=== PATIENT | female | born 1950 | race Caucasian/White ===

== ENCOUNTER 2017-02-03 08:00 | Inpatient (IN) | payer MEDICARE, OTHER ==
[~2017-02-03 08:00] MED LIST: Lidocaine 1%/Sod Bicarbonate in NS 8.4% 1 ML Syringe PRN; Sodium Chloride 0.9% 10 ML Syringe FLUSH PRN
[2017-02-03] MEDS: Lactated Ringers 1,000 ML IV SCH ×2 (11:10→15:04)
[2017-02-03] MEDS ORDERED: Scopolamine 1.5 MG Transdermal Patch TRDERM ONE (11:11)
--- NOTE | 2017-02-03 11:14 | PCM.PREANE ---
Preanesthetic Assessment - Anesthesia/Transfusion/Family Hx Anesthesia History: Prior Anesthesia Reaction Type of Anesthesia Reaction: Excessive Nausea/Vomiting Family History of Anesthesia Reaction: Yes Transfusion History: No Prior Transfusion(s) - Review of Systems General: No Symptoms Pulmonary: No Symptoms Cardiovascular: No Symptoms Gastrointestinal: No Symptoms Neurological: No Symptoms Other: Reports: None - Physical Assessment NPO Status Date: 02/02/17 NPO Status Time: 21:00 Pulse: 65 O2 Sat by Pulse Oximetry: 98 Respiratory Rate: 16 Blood Pressure: 132/79 Temperature: 37.2 C Weight: 91 kg ASA Class: 2 Mental Status: Alert & Oriented x3 Airway Class: Mallampati = 2 Dentition: Reports: Normal Dentition Thyro-Mental Finger Breadths: 3 Mouth Opening Finger Breadths: 3 ROM/Head Extension: Full Lungs: Clear to Auscultation, Normal Respiratory Effort Cardiovascular: Regular Rate, Regular Rhythm - Lab Values: Reviewed - Imaging/EKG Impressions: Reviewed - Allergies Allergies/Adverse Reactions: Allergies Allergy/AdvReac Type Severity Reaction Status Date / Time chlorhexidine Allergy Rash Verified 01/31/17 16:22 - Acknowledgements Anesthesia Type Planned: Spinal Pt an Appropriate Candidate for the Planned Anesthesia: Yes Alternatives and Risks of Anesthesia Discussed w Pt/Guardian: Yes Pt/Guardian Understands and Agrees with Anesthesia Plan: Yes PreAnesthesia Questionnaire HEENT History: Reports: Impaired Vision, Other (See Below) Other HEENT History: wears glasses Cardiovascular History: Reports: High Cholesterol Respiratory History: Reports: None Gastrointestinal History: Reports: Other (See Below) Other Gastrointestinal History: ulcerative colitis Genitourinary History: Reports: Urinary Incontinence [employer] History: Reports: None Musculoskeletal History: Reports: Osteoarthritis, Other (See Below) Other Musculoskeletal History: calcaneal spur Right foot, chronic lumbar radiculpathy, plantar fasciitis, acute low back pain Neurological History: Reports: None Psychiatric History: Reports: Other (See Below) Other Psychiatric History: insomnia Endocrine/Metabolic History: Reports: None Hematologic History: Reports: None Immunologic History: Reports: None Oncologic (Cancer) History: Reports: None Dermatologic History: Reports: None - Past Surgical History Head Surgeries/Procedures: Reports: None Cardiovascular Surgical History: Reports: None Respiratory Surgical History: Reports: None GI Surgical History: Reports: Bariatric Procedure, Colonoscopy Female Surgical History: Reports: Section, Oophorectomy Male Surgical History: Reports: None Endocrine Surgical History: Reports: None Neurological Surgical History: Reports: None Musculoskeletal Surgical History: Reports: Other (See Below) Other Musculoskeletal Surgeries/Procedures:: bilateral knee replacements, bilateral carpal tunnel release Oncologic Surgical History: Reports: None Dermatological Surgical History: Reports: None - SUBSTANCE USE Smoking Status *Q: Former Smoker Recreational Drug Use History: No - HOME MEDS Home Medications: Home Meds Acetaminophen [Tylenol Extra Strength] 1,000 mg PO Q6H PRN 01/31/17 [History] Balsalazide Disodium 3 cap PO TID 01/31/17 [History] Cholecalciferol (Vitamin D3) [Vitamin D3] 1,000 unit PO DAILY 01/31/17 [History] Loratadine [Alavert] 10 mg PO DAILY PRN 01/31/17 [History] Zolpidem [Ambien] 5 - 10 mg PO BEDTIME PRN 01/31/17 [History] - CURRENT (IN HOUSE) MEDS Current Meds: Current Medications Bisacodyl (Dulcolax) 5 mg PO DAILY PRN PRN Reason: Constipation Morphine Sulfate 8 mg/Epinephrine HCl 0.3 mg/Cefuroxime Sodium 750 mg/Ketorolac Tromethamine 30 mg/Sodium Chloride 27.9 ml 0 mg .XX ONETIME ONE Stop: 02/03/17 11:31 Cyclobenzaprine HCl (Flexeril) 10 mg PO TID PRN PRN Reason: Spasms Diphenhydramine HCl (Benadryl) 25 mg IVPUSH Q4H PRN PRN Reason: Nausea Docusate Sodium (Colace) 100 mg PO BID MARISELA Famotidine (Pepcid) 20 mg PO BID MARISELA Lactated Ringer's (Ringers, Lactated) 1,000 mls @ 125 mls/hr IV ASDIRECTED MARISELA Stop: 02/03/17 23:00 Cefazolin Sodium/Dextrose 2 gm (/ Premix) 50 mls @ 100 mls/hr IV Q8H MARISELA Stop: 02/03/17 23:29 Lidocaine/Sodium Bicarbonate (Buffered Lidocaine 1% In Ns 8.4%) 0.25 ml .XX ONETIME PRN PRN Reason: Prior to IV Start Stop: 02/03/17 18:00 Magnesium Hydroxide (Milk Of Magnesia) 30 ml PO BID PRN PRN Reason: Constipation Morphine Sulfate (Morphine) 2 mg IVPUSH Q2H PRN PRN Reason: Breakthrough Pain Naloxone HCl (Narcan) 0.1 mg IVPUSH Q5M PRN PRN Reason: Oversedation Ondansetron HCl (Zofran) 4 mg IVPUSH Q6H PRN PRN Reason: Nausea/Vomiting Oxycodone/Acetaminophen (Percocet 325-5 Mg) 1 - 2 tab PO Q4H PRN PRN Reason: Pain Rivaroxaban (Xarelto) 10 mg PO DAILY MARISELA Scopolamine (Transderm-Scop) 1.5 mg TRDERM ONETIME ONE Stop: 02/03/17 11:12 Senna (Senna) 8.6 mg PO BID PRN PRN Reason: Constipation Sodium Chloride (Saline Flush) 10 ml FLUSH ASDIRECTED PRN PRN Reason: Keep Vein Open Stop: 02/03/17 18:00
[2017-02-03] MEDS ORDERED: Midazolam 1 MG/ML 2 ML SDV ONE (11:34)
[2017-02-03] MEDS ORDERED: Morphine PF 10 MG/10 ML SDV ONE (11:34)
[2017-02-03] MEDS ORDERED: Propofol 200 MG/20 ML SDV ONE ×3 (11:35→11:36)
[2017-02-03] MEDS ORDERED: fentaNYL 100 MCG/2 ML SDV ONE (11:35)
[2017-02-03] MEDS ORDERED: ceFAZolin 1 GM Vial ONE ×2 (11:36)
[2017-02-03] MEDS ORDERED: Ketamine 500 mg/10 ML MDV ONE (11:36)
[2017-02-03] MEDS ORDERED: Ondansetron 4 MG/2 ML SDV IVPUSH PRN ×2 (12:26→12:30)
[2017-02-03] MEDS ORDERED: fentaNYL 100 MCG/2 ML SDV IVPUSH PRN (12:26)
[2017-02-03] MEDS ORDERED: Lactated Ringers 1,000 ML ONE (12:30)
[2017-02-03] MEDS ORDERED: Bisacodyl 5 MG Tab PO PRN (12:30)
[2017-02-03] MEDS ORDERED: Sennosides 8.6 MG Tab PO PRN (12:30)
[2017-02-03] MEDS ORDERED: Magnesium Hydroxide 400 MG/5 ML Susp 30 ML Cup PO PRN (12:30)
[2017-02-03] MEDS ORDERED: Cyclobenzaprine 10 MG Tab PO PRN (12:30)
[2017-02-03] MEDS ORDERED: Naloxone 0.4 MG/ML SDV IVPUSH PRN (12:30)
[2017-02-03] MEDS ORDERED: Morphine 2 MG/ML Syringe IVPUSH PRN (12:30)
[2017-02-03] MEDS ORDERED: diphenhydrAMINE 50 MG/ML SDV IVPUSH PRN ×2 (12:30→13:31)
[2017-02-03] MEDS: Iodine/Sodium Iodide 2% Tincture 30 ML Bottle ONE ×2 (12:33→13:20)
[2017-02-03] MEDS: ceFAZolin 1 GM Vial ONE ×2 (12:34→13:23)
[2017-02-03] MEDS: Morphine 8 MG, EPINEPHrine 0.3 MG, Cefuroxime 750 MG, Ketorolac 30 MG, Sodium Chloride ... ONE ×10 (12:34→13:27)
[2017-02-03] MEDS: Bupivacaine 0.25% 30 ML SDV ONE ×2 (12:35→13:28)
[2017-02-03] MEDS: Vancomycin 1 GM SDV ONE ×2 (12:37→13:34)
[2017-02-03] MEDS ORDERED: ePHEDrine 50 MG/ML SDV ONE (13:01)
[2017-02-03] MEDS ORDERED: ePHEDrine 50 MG/ML SDV IVPUSH PRN (13:31)
[2017-02-03] MEDS ORDERED: Diphtheria,Pertussis(Acell),Tetanus Vaccine 0.5 ML SDV IM ONE (13:34)
[2017-02-03] MEDS ORDERED: Pneumococcal Polyvalent-23 Vaccine 0.5 ML SDV IM ONE (13:34)
[2017-02-03] MEDS ORDERED: FLU Vacc QS 2017-18 (6mos UP)/PF 60 MCG/0.5 ML Syringe IM ONE (13:45)
[2017-02-03] MEDS ORDERED: Ondansetron 4 MG/2 ML SDV ONE (13:49)
[2017-02-03] MEDS ORDERED: Dexamethasone 4 MG/ML 5 ML MDV ONE (13:49)
--- NOTE | 2017-02-03 14:14 | PCM.POSTAN ---
POST ANESTHESIA ASSESSMENT - MENTAL STATUS Mental Status: Alert, Oriented - VITAL SIGNS Pulse Rate: 72 SaO2: 98 Resp Rate: 16 Blood Pressure: 82/49 Temperature: 36.1 C - RESPIRATORY Respiratory Status: Respiratory Rate WNL, Airway Patent, O2 Saturation Stable - CARDIOVASCULAR CV Status: Pulse Rate WNL, Blood Pressure Stable - GASTROINTESTINAL GI Status: No Symptoms - PAIN Pain Score: 0 - POST OP HYDRATION Hydration Status: Adequate & Stable
[2017-02-03] MEDS ORDERED: Ketorolac 30 MG/ML SDV ONE (14:32)
[2017-02-03] MEDS ORDERED: Haloperidol Lactate 5 MG/ML SDV IVPUSH ONE (14:40)
--- NOTE | 2017-02-03 14:45 | CR ---
Pelvis and left hip: AP view of the pelvis was obtained as well as lateral view of the left hip. Comparison: No previous study. Left hip prosthesis is seen. Components are aligned. Underlying bony structures are intact. Bony structures are osteopenic. Nothing acute is seen. Impression: 1. Satisfactory appearance of left hip prosthesis which has been recently placed. 2. Osteopenia. Diagnostic code #2
[2017-02-03] MEDS ORDERED: Metoclopramide 10 MG/2 ML SDV IVPUSH SCH (16:00)
--- NOTE | 2017-02-03 16:27 | PCM.SN ---
- Free Text/Narrative Note: Returned to patient's bedside. BP increased, RN to infuse remainder if IV fluids (500ml LR).
[2017-02-03] MEDS ORDERED: Loratadine 10 MG Tab PO PRN (17:11)
[2017-02-03] MEDS ORDERED: Zolpidem 5 MG Tab PO PRN (17:11)
--- NOTE | 2017-02-03 18:00 | PCM.OPNOTE ---
- General Post-Op/Procedure Note Date of Surgery/Procedure: 02/03/17 Operative Procedure(s): left total hip arthroplasty Pre Op Diagnosis: left hip osteoarthrosis Post-Op Diagnosis: Same Anesthesia Technique: Local, MAC, Spinal Primary Surgeon: Zac Russ Anesthesia Provider: Lena Hung Insurance Sales Executive: Maribel Torres Insurance Sales Executive: Chelsea Cabrera EBL in mLs: 400 Complications: None Condition: Good Free Text/Narrative:: Intake & Output 02/03/17 02/03/17 02/03/17 06:59 14:59 22:59 Intake Total 400 Output Total 350 Balance 50 56mm cup size 6 stem 36 +0
--- NOTE | 2017-02-03 18:43 | PCM.CONS ---
H&P History of Present Illness - General Date of Service: 02/03/17 Admit Problem/Dx: Admission Diagnosis/Problem Admission Diagnosis/Problem Osteoarthritis of hip Source of Information: Patient, Old Records, Provider, RN, RN Notes Reviewed, Other (surgical notes ) History Limitations: Reports: No Limitations - History of Present Illness Initial Comments - Free Text/Narative: Carla Dixon is a 66 [address] pt[address] of [address] Russ who is post-operative day 0 for left EDI. Hospital medicine was consulted for post-operative care. She is currently pain free however she is experiencing severe nausea with dry heaving. Her reports she has had both her knees done in the past and has had nausea and vomiting with these, although doesn't appear to have ever been this bad. She does have a emesis bag which contains minimal amounts of clear liquid. This appears to be saliva and not actual emesis. We will adjust her antiemetics accordingly. She denies any CP, SOB, or palpitations. She carries a history of HLD, ulcerative colitis, chronic lumbar radiculopathy, low back pain, prior bariatric procedure, and prior bilateral TKA. She is a full code. Her PCP is Dr. Emelina Mireles. Left Hip Pain Score (Numeric/FACES): 5 - Related Data Allergies/Adverse Reactions: Allergies Allergy/AdvReac Type Severity Reaction Status Date / Time chlorhexidine Allergy Rash Verified 01/31/17 16:22 Home Medications: Home Meds Acetaminophen [Tylenol Extra Strength] 1,000 mg PO Q6H PRN 01/31/17 [History] Balsalazide Disodium 3 cap PO TID 01/31/17 [History] Cholecalciferol (Vitamin D3) [Vitamin D3] 1,000 unit PO DAILY 01/31/17 [History] Loratadine [Alavert] 10 mg PO DAILY PRN 01/31/17 [History] Zolpidem [Ambien] 5 - 10 mg PO BEDTIME PRN 01/31/17 [History] Past Medical History HEENT History: Reports: Impaired Vision, Other (See Below) Other HEENT History: wears glasses Cardiovascular History: Reports: High Cholesterol, Other (See Below) Respiratory History: Reports: None Gastrointestinal History: Reports: Other (See Below) Other Gastrointestinal History: ulcerative colitis Genitourinary History: Reports: Urinary Incontinence CUT OFF TENDER GLASS History: Reports: None Musculoskeletal History: Reports: Osteoarthritis, Other (See Below) Other Musculoskeletal History: calcaneal spur Right foot, chronic lumbar radiculpathy, plantar fasciitis, acute low back pain Neurological History: Reports: None Psychiatric History: Reports: Other (See Below) Other Psychiatric History: insomnia Endocrine/Metabolic History: Reports: None Hematologic History: Reports: None Immunologic History: Reports: None Oncologic (Cancer) History: Reports: None Dermatologic History: Reports: None - Past Surgical History Head Surgeries/Procedures: Reports: None Cardiovascular Surgical History: Reports: None Respiratory Surgical History: Reports: None GI Surgical History: Reports: Bariatric Procedure, Colonoscopy Female Surgical History: Reports: Section, Oophorectomy Endocrine Surgical History: Reports: None Neurological Surgical History: Reports: None Musculoskeletal Surgical History: Reports: Other (See Below) Other Musculoskeletal Surgeries/Procedures:: bilateral knee replacements, bilateral carpal tunnel release Oncologic Surgical History: Reports: None Dermatological Surgical History: Reports: None Social & Family History - Family History Oncologic: Reports: Lung - Tobacco Use Smoking Status *Q: Former Smoker Used Tobacco, but Quit: No Month Tobacco Last Used: 1977 Second Hand Smoke Exposure: No - Caffeine Use Caffeine Use: Reports: Coffee Caffeine Use Comment: Drinks 1 cup per day - Recreational Drug Use Recreational Drug Use: No H&P Review of Systems - Review of Systems: Review Of Systems: See Below General: Reports: No Symptoms. Denies: Fever, Chills, Malaise, Weakness HEENT: Reports: No Symptoms. Denies: Ear Pain, Eye Pain, Headaches Pulmonary: Reports: No Symptoms. Denies: Shortness of Breath, Wheezing, Pleuritic Chest Pain, Cough, Sputum Cardiovascular: Reports: No Symptoms. Denies: Chest Pain, Palpitations, Dyspnea on Exertion, Orthopnea, PND, Edema, Lightheadedness, Syncope Gastrointestinal: Reports: Nausea, Vomiting. Denies: Abdominal Pain, Constipation, Diarrhea Genitourinary: Reports: No Symptoms. Denies: Dysuria, Frequency, Burning, Pain , Urgency Musculoskeletal: Reports: Other (reports legs are numb ). Denies: Neck Pain, Shoulder Pain, Arm Pain, Back Pain, Hand Pain, Leg Pain, Foot Pain, Joint Pain, Joint Swelling Psychiatric: Reports: No Symptoms. Denies: Confusion, Depression, Mood Lability , Anxiety Neurological: Reports: Dizziness, Numbness (bilateral legs ), Difficulty Walking. Denies: Confusion, Headache, Pre-Existing Deficit, Tingling, Trouble Speaking Hematologic/Lymphatic: Reports: No Symptoms Immunologic: Reports: No Symptoms Review of Systems Comment:: Patient reports having severe nausea and vomiting. She is known to have severe postoperative nausea and vomiting as she's had bilateral TKA with similar symptoms. She denies any other complaints. She's had a scopolamine patch and meclizine with no response. We'll review medications and adjust accordingly. Exam - Exam Exam: See Below - Vital Signs Vital Signs: Last Vital Signs Temp 97.2 F 02/03/17 15:00 Pulse 72 02/03/17 14:14 Resp 14 02/03/17 15:00 BP 103/62 02/03/17 15:00 Pulse Ox 89 L 02/03/17 15:26 Weight: 221 lb 14.4 oz - Exam Quality Assessment: Urinary Catheter, DVT Prophylaxis General: Alert, Oriented, Cooperative, Mild Distress HEENT: Conjunctiva Clear, EACs Clear, Hearing Intact, Mucosa Moist & [place], Nares Patent, Posterior Pharynx Clear, Pupils Equal, Pupils Reactive Neck: Supple, Trachea Midline. No: JVD Lungs: Clear to Auscultation, Normal Respiratory Effort Cardiovascular: Regular Rate, Regular Rhythm GI/Abdominal Exam: Normal Bowel Sounds, Soft, Non-Tender, No Organomegaly, No Distention, No Abnormal Bruit, No Mass (Female) Exam: Deferred Rectal (Female) Exam: Deferred Extremities: Non-Tender, No Pedal Edema, Normal Capillary Refill, Other (ALMA bandage on left leg. Bandage is intact and dry. ) Peripheral Pulses: 2+: Radial (L), Radial (R), Posterior Tibial (L), Posterior Tibial (R), Dorsalis Pedis (L), Dorsalis Pedis (R) Skin: Warm, Dry, Intact Neurological: Cranial Nerves Intact (grossly ) Neuro Extensive - Mental Status: Alert, Oriented x3, Normal Mood/Affect, Normal Cognition, Memory Intact Neuro Extensive - Motor, Sensory, Reflexes: CN II-XII Intact (grossly ) Psychiatric: Alert, Normal Affect, Normal Mood Physical Exam Comments:: Patient appears to be in some obvious distress from nausea. No other concerns noted. I did discuss this patient with Maribel Torres PA-C and will adjust some antiemetic medications. - Patient Data Lab Results Last 24 hrs: Laboratory Results - last 24 hr 02/03/17 Range/Units 11:00 Blood Type A POSITIVE Gel Antibody Screen Negative Consult PN Assessment/Plan POD#: 0 (1) S/P total hip arthroplasty SNOMED Code(s): 071177555847 Code(s): Z96.649 - PRESENCE OF UNSPECIFIED ARTIFICIAL HIP JOINT Current Visit: Yes Qualifiers: Laterality: left Qualified Code(s): Z96.642 - Presence of left artificial hip joint (2) Post-operative nausea and vomiting SNOMED Code(s): 1217332 Code(s): R11.2 - NAUSEA WITH VOMITING, UNSPECIFIED; Z98.890 - OTHER SPECIFIED POSTPROCEDURAL STATES Priority: High Current Visit: Yes (3) Hyperlipemia SNOMED Code(s): 73044529 Code(s): E78.5 - HYPERLIPIDEMIA, UNSPECIFIED Priority: Low Current Visit : No Qualifiers: Hyperlipidemia type: unspecified Qualified Code(s): E78.5 - Hyperlipidemia , unspecified (4) Ulcerative colitis SNOMED Code(s): 46097134 Code(s): K51.90 - ULCERATIVE COLITIS, UNSPECIFIED, WITHOUT COMPLICATIONS Priority: Low Current Visit: Yes Qualifiers: Ulcerative colitis location: unspecified ulcerative colitis location Digestive disease complication type: unspecified complication Qualified Code(s ): K51.919 - Ulcerative colitis, unspecified with unspecified complications (5) Lumbar radiculopathy SNOMED Code(s): 150879333 Code(s): M54.16 - RADICULOPATHY, LUMBAR REGION Priority: Low Current Visit: Yes (6) Hx of bariatric surgery SNOMED Code(s): 885702758 Code(s): Z98.84 - BARIATRIC SURGERY STATUS Priority: Low Current Visit: Yes Problem List Initiated/Reviewed/Updated: Yes Plan: I/P: Acute: S/P left EDI, Post-operative day 0 -DVT and pain management per primary team -PT/OT -IS/RT -Monitor O2 saturation -O2 as needed Post-operative N&V -Scopolamine patch in place with little effect. -Prior Reglan with little effect. -Prior Zofran with little effect. -Schedule zofran as indicated -Compazine now and PRN -Benadryl now and as indicated -D/C Reglan - monitor for extrapyramidal reaction due to Reglan and Compazine. Chronic: HLD UC Chronic lumbar uropathy Hx/o retro-surgery Hx/o bilateral TKA Plan: CM/SW for discharge planning Continue home medications as indicated Routine AM labs GI prophylaxis Requesting Provider: Dr. Russ Date Consult Requested: 02/03/17 Patient History Reviewed: Yes Admission H&P Reviewed: Yes Time Spent (in minutes): 60
[2017-02-03] MEDS ORDERED: Prochlorperazine 10 MG/2 ML SDV IVPUSH PRN (19:04)
[2017-02-03] MEDS: ceFAZolin 2 GM in Premix Bag 1 BAG IV SCH (19:53)
[2017-02-03] MEDS ORDERED: BALSALAZIDE DISODIUM PO SCH (21:00)
[2017-02-03] MEDS: Docusate Sodium 100 MG Cap PO SCH (21:50)
[2017-02-03] MEDS: Famotidine 20 MG Tab PO SCH (21:50)
[2017-02-04] MEDS: ceFAZolin 2 GM in Premix Bag 1 BAG IV SCH ×2 (04:16→10:52)
--- NOTE | 2017-02-04 06:21 | PCM.CONSN ---
- General Info Date of Service: 02/04/17 Admission Dx/Problem (Free Text): Admission Diagnosis/Problem Admission Diagnosis/Problem Osteoarthritis of hip Functional Status: Reports: Pain Controlled (10/28), Tolerating Diet, Ambulating , Urinating, Incentive Spirometry. Denies: New Symptoms - Review of Systems General: Reports: No Symptoms HEENT: Reports: No Symptoms Pulmonary: Reports: No Symptoms Cardiovascular: Reports: No Symptoms Gastrointestinal: Reports: Nausea (eariler this am, has resolved now. ). Denies : Abdominal Pain, Constipation, Diarrhea, Vomiting Genitourinary: Reports: No Symptoms Musculoskeletal: Reports: Leg Pain (left ), Joint Pain (left hip 10/28) Skin: Reports: No Symptoms Neurological: Reports: No Symptoms Psychiatric: Reports: No Symptoms Systems Review Comment:: Overall she is doing fairly well. She reports pain is controlled. Last night she did have nausea and vomiting which resolved. This was followed by dizziness which resolved this morning. She does have a history of postoperative nausea and vomiting. She has urinated. She reports 10/28 pain that is now controlled. - Patient Data Vitals - Most Recent: Last Vital Signs Temp 97.0 F 02/04/17 03:47 Pulse 75 02/04/17 03:47 Resp 16 02/04/17 03:47 BP 104/53 L 02/04/17 03:47 Pulse Ox 95 02/04/17 03:47 Weight - Most Recent: 217 lb 14.4 oz I&O - Last 24 Hours: Intake & Output 02/03/17 02/03/17 02/04/17 14:59 22:59 06:59 Intake Total 400 850 Output Total 350 250 Balance 50 600 Lab Results Last 24 Hours: Laboratory Results - last 24 hr 02/03/17 Range/Units 11:00 Blood Type A POSITIVE Gel Antibody Screen Negative Med Orders - Current: Current Medications Bisacodyl (Dulcolax) 5 mg PO DAILY PRN PRN Reason: Constipation Cholecalciferol (Vitamin D3) 1,000 units PO DAILY [facility] Cyclobenzaprine HCl (Flexeril) 10 mg PO TID PRN PRN Reason: Spasms Diphenhydramine HCl (Benadryl) 25 mg IVPUSH Q4H PRN PRN Reason: Nausea Last Admin: 02/03/17 19:08 Dose: 25 mg Docusate Sodium (Colace) 100 mg PO BID [facility] Last Admin: 02/03/17 21:50 Dose: 100 mg Famotidine (Pepcid) 20 mg PO BID [facility] Last Admin: 02/03/17 21:50 Dose: 20 mg Cefazolin Sodium/Dextrose 2 gm (/ Premix) 50 mls @ 100 mls/hr IV Q8H [facility] Stop: 02/04/17 11:59 Last Admin: 02/04/17 04:16 Dose: 100 mls/hr Loratadine (Claritin) 10 mg PO DAILY PRN PRN Reason: Allergies Magnesium Hydroxide (Milk Of Magnesia) 30 ml PO BID PRN PRN Reason: Constipation Morphine Sulfate (Morphine) 2 mg IVPUSH Q2H PRN PRN Reason: Breakthrough Pain Naloxone HCl (Narcan) 0.1 mg IVPUSH Q5M PRN PRN Reason: Oversedation Ondansetron HCl (Zofran) 4 mg IVPUSH Q6HR [facility] Oxycodone/Acetaminophen (Percocet 325-5 Mg) 1 - 2 tab PO Q4H PRN PRN Reason: Pain Prochlorperazine Edisylate (Compazine) 5 mg IVPUSH Q6H PRN PRN Reason: Nausea/Vomiting Last Admin: 02/03/17 19:52 Dose: 5 mg Rivaroxaban (Xarelto) 10 mg PO DAILY [facility] Senna (Senna) 8.6 mg PO BID PRN PRN Reason: Constipation Zolpidem Tartrate (Ambien) 5 - 10 mg PO BEDTIME PRN PRN Reason: Insomnia Discontinued Medications Bupivacaine HCl (Marcaine 0.25%) Confirm Administered Dose 30 ml .ROUTE .STK- MED ONE Stop: 02/03/17 11:25 Last Admin: 02/03/17 13:28 Dose: 30 ml Cefazolin Sodium (Ancef) Confirm Administered Dose 1 gm .ROUTE .STK-MED ONE Stop: 02/03/17 11:37 Cefazolin Sodium (Ancef) Confirm Administered Dose 1 gm .ROUTE .STK-MED ONE Stop: 02/03/17 11:37 Cefazolin Sodium (Ancef) Confirm Administered Dose 2 gm .ROUTE .STK-MED ONE Stop: 02/03/17 11:24 Last Admin: 02/03/17 13:23 Dose: 2 gm Morphine Sulfate 8 mg/Epinephrine HCl 0.3 mg/Cefuroxime Sodium 750 mg/Ketorolac Tromethamine 30 mg/Sodium Chloride 27.9 ml 0 mg .XX ONETIME ONE Stop: 02/03/17 11:31 Last Admin: 02/03/17 13:27 Dose: 788.3 mg Dexamethasone (Dexamethasone) Confirm Administered Dose 20 mg .ROUTE .STK-MED ONE Stop: 02/03/17 13:50 Diphenhydramine HCl (Benadryl) 25 mg IVPUSH Q6H PRN PRN Reason: Pruritis Stop: 02/03/17 23:00 Diphtheria/Tetanus/Acell Pertussis (Adacel) 0.5 ml IM .ONCE ONE Stop: 02/03/17 13:35 Ephedrine Sulfate (Ephedrine Sulfate) Confirm Administered Dose 50 mg .ROUTE .STK-MED ONE Stop: 02/03/17 13:02 Ephedrine Sulfate (Ephedrine Sulfate) 5 mg IVPUSH ASDIRECTED PRN PRN Reason: Hypotension Stop: 02/03/17 23:00 Fentanyl (Sublimaze) Confirm Administered Dose 100 mcg .ROUTE .STK-MED ONE Stop: 02/03/17 11:36 Fentanyl (Sublimaze) 50 mcg IVPUSH Q5M PRN PRN Reason: Pain Stop: 02/03/17 18:00 Haloperidol Lactate (Haldol) 1 mg IVPUSH ONETIME ONE Stop: 02/03/17 14:41 Lactated Ringer's (Ringers, Lactated) 1,000 mls @ 125 mls/hr IV ASDIRECTED [facility] Stop: 02/03/17 23:00 Last Admin: 02/03/17 15:04 Dose: 125 mls/hr Lactated Ringer's (Ringers, Lactated) Confirm Administered Dose 1,000 mls @ as directed .ROUTE .STK-MED ONE Stop: 02/03/17 12:31 Influenza Virus Vaccine (Pharmacy To Dose - Influenza Vaccine) 1 each IM ONETIME ONE Stop: 02/03/17 13:35 Influenza Virus Vaccine (Flulaval Quad [id number]) 60 mcg IM .ONCE ONE Stop: 02/03/17 13:46 Iodine (Iodine 2% Mild Tincture) Confirm Administered Dose 30 ml .ROUTE .STK- MED ONE Stop: 02/03/17 11:24 Last Admin: 02/03/17 13:20 Dose: 18 ml Ketamine HCl (Ketalar) Confirm Administered Dose 500 mg .ROUTE .STK-MED ONE Stop: 02/03/17 11:37 Ketorolac Tromethamine (Toradol) Confirm Administered Dose 30 mg .ROUTE .STK- MED ONE Stop: 02/03/17 14:33 Lidocaine/Sodium Bicarbonate (Buffered Lidocaine 1% In Ns 8.4%) 0.25 ml .XX ONETIME PRN PRN Reason: Prior to IV Start Stop: 02/03/17 18:00 Meclizine HCl (Antivert) 25 mg PO ONETIME ONE Stop: 02/03/17 15:38 Last Admin: 02/03/17 15:53 Dose: 25 mg Metoclopramide HCl (Reglan) 5 mg IVPUSH Q6H [facility] Last Admin: 02/03/17 17:08 Dose: 5 mg Midazolam HCl (Versed 1 Mg/Ml) Confirm Administered Dose 2 mg .ROUTE .STK-MED ONE Stop: 02/03/17 11:35 Morphine Sulfate (Duramorph Pf) Confirm Administered Dose 10 mg .ROUTE .STK-MED ONE Stop: 02/03/17 11:35 Non-Formulary Medication (Balsalazide Disodium [Balsalazide Disodium]) 3 cap PO TID [facility] Ondansetron HCl (Zofran) 4 mg IVPUSH Q6H PRN PRN Reason: Nausea/Vomiting Ondansetron HCl (Zofran) 4 mg IVPUSH ONETIME PRN PRN Reason: Nausea/Vomiting Stop: 02/03/17 23:00 Last Admin: 02/03/17 14:55 Dose: 4 mg Ondansetron HCl (Zofran) Confirm Administered Dose 4 mg .ROUTE .STK-MED ONE Stop: 02/03/17 13:50 Pneumococcal Polyvalent Vaccine (Pneumovax 23) 0.5 ml IM .ONCE ONE Stop: 02/03/17 13:35 Propofol (Diprivan 20 Ml) Confirm Administered Dose 200 mg .ROUTE .STK-MED ONE Stop: 02/03/17 11:36 Propofol (Diprivan 20 Ml) Confirm Administered Dose 200 mg .ROUTE .STK-MED ONE Stop: 02/03/17 11:36 Propofol (Diprivan 20 Ml) Confirm Administered Dose 200 mg .ROUTE .STK-MED ONE Stop: 02/03/17 11:37 Scopolamine (Transderm-Scop) 1.5 mg TRDERM ONETIME ONE Stop: 02/03/17 11:12 Last Admin: 02/03/17 11:20 Dose: 1.5 mg Sodium Chloride (Saline Flush) 10 ml FLUSH ASDIRECTED PRN PRN Reason: Keep Vein Open Stop: 02/03/17 18:00 Tranexamic Acid (Cyklokapron) Confirm Administered Dose 1,000 mg .ROUTE .STK- MED ONE Stop: 02/03/17 11:24 Last Admin: 02/03/17 13:33 Dose: 1,000 mg Vancomycin HCl (Vancomycin) Confirm Administered Dose 1 gm .ROUTE .STK-MED ONE Stop: 02/03/17 11:24 Last Admin: 02/03/17 13:34 Dose: 1 gm - Exam Quality Assessment: DVT Prophylaxis General: Alert, Oriented, Cooperative HEENT: Pupils Equal, Pupils Reactive, Mucous Membr. Moist/[place] Neck: Supple, Trachea Midline, No JVD Lungs: Clear to Auscultation, Normal Respiratory Effort Cardiovascular: Regular Rate, Regular Rhythm GI/Abdominal Exam: Normal Bowel Sounds, Soft, Non-Tender, No Organomegaly, No Distention, No Abnormal Bruit, No Mass (Female) Exam: Deferred Back Exam: Normal Inspection, Full Range of Motion Extremities: No Pedal Edema, Normal Capillary Refill, Limited Range of Motion, Other (ALMA bandage in place on left leg. ) Peripheral Pulses: 2+: Radial (L), Radial (R), Posterior Tibial (L), Posterior Tibial (R), Dorsalis Pedis (L), Dorsalis Pedis (R) Skin: Warm, Dry, Intact Wound/Incisions: Dressing Dry and Intact, No Drainage Neurological: No New Focal Deficit Psy/Mental Status: Normal Affect, Normal Mood Physical Findings Comments:: Patient has improved greatly overnight. There was some questions with her being started on Xarelto given her history of ulcerative colitis and bariatric surgery.. I spoke with Maribel Torres PA-C from Dr. Russ's office about this concern. She reports that they chose Xarelto over aspirin as Xarelto at a faster half-life. This was apparently discussed with Dr. Last, who did her pre -operative physical and cleared her. I discussed this with the patient as I feel this is appropriate treatment. I encouraged the patient to take Xarelto as it will reduce her risk of postoperative complications including PE and DVT. She acknowledge my concern and agreed. Otherwise she is hemodynamically stable. Vital signs have been stable. Consult PN Assessment/Plan POD#: 1 (1) S/P total hip arthroplasty SNOMED Code(s): 665774695940 Code(s): Z96.649 - PRESENCE OF UNSPECIFIED ARTIFICIAL HIP JOINT Priority: High Current Visit: Yes Qualifiers: Laterality: left Qualified Code(s): Z96.642 - Presence of left artificial hip joint (2) Post-operative nausea and vomiting SNOMED Code(s): 4766106 Code(s): R11.2 - NAUSEA WITH VOMITING, UNSPECIFIED; Z98.890 - OTHER SPECIFIED POSTPROCEDURAL STATES Priority: High Current Visit: Yes (3) Hyperlipemia SNOMED Code(s): 19621762 Code(s): E78.5 - HYPERLIPIDEMIA, UNSPECIFIED Priority: Low Current Visit : No Qualifiers: Hyperlipidemia type: unspecified Qualified Code(s): E78.5 - Hyperlipidemia , unspecified (4) Ulcerative colitis SNOMED Code(s): 16305300 Code(s): K51.90 - ULCERATIVE COLITIS, UNSPECIFIED, WITHOUT COMPLICATIONS Priority: Low Current Visit: Yes Qualifiers: Ulcerative colitis location: unspecified ulcerative colitis location Digestive disease complication type: unspecified complication Qualified Code(s ): K51.919 - Ulcerative colitis, unspecified with unspecified complications (5) Lumbar radiculopathy SNOMED Code(s): 263015000 Code(s): M54.16 - RADICULOPATHY, LUMBAR REGION Priority: Low Current Visit: Yes (6) Hx of bariatric surgery SNOMED Code(s): 067011263 Code(s): Z98.84 - BARIATRIC SURGERY STATUS Priority: Low Current Visit: Yes Problem List Initiated/Reviewed/Updated: Yes My Orders Last 24 Hours: My Active Orders 02/03/17 19:04 Prochlorperazine [Compazine] 5 mg IVPUSH Q6H PRN 02/04/17 21:00 Ondansetron [Zofran] 4 mg IVPUSH Q6HR Plan: I/P: Acute: S/P left EDI, Post-operative day 1 -DVT and pain management per primary team -PT/OT -IS/RT -Monitor O2 saturation - weaned off O2. -Hgb 13.0 -Hct 40.3 -electrolytes look good -Creatinine 0.7 -eGFR >60 -Hemodynamically stable -Vital signs stable Post-operative N&V - Resolved -Scopolamine patch in place with little effect. -Prior Reglan with little effect. -Prior Zofran with little effect. -Schedule zofran as indicated -Compazine now and PRN -Benadryl now and as indicated -D/C Reglan - monitor for extrapyramidal reaction due to Reglan and Compazine. Chronic: HLD UC Chronic lumbar uropathy Hx/o retro-surgery Hx/o bilateral TKA Plan: CM/SW for discharge planning Continue home medications as indicated Routine AM labs GI prophylaxis From a hospitalist standpoint she is clear for discharge pending ortho agreement.
[2017-02-04] MEDS: Acetaminophen/oxyCODONE 325-5 MG Tab PO PRN ×3 (08:08→16:04)
[2017-02-04] MEDS ORDERED: Cholecalciferol (Vitamin D3) 1,000 Unit Tab PO SCH (09:00)
[2017-02-04] MEDS: Famotidine 20 MG Tab PO SCH (09:05)
[2017-02-04] MEDS: Docusate Sodium 100 MG Cap PO SCH (09:05)
[2017-02-04] MEDS: Rivaroxaban 10 MG Tab PO SCH ×2 (09:06→09:15)
--- NOTE | 2017-02-04 12:03 | PCM48HPAN ---
Post Anesthesia Note - EVALUATION WITHIN 48HRS OF ANESTHETIC Vital Signs in Normal Range: Yes Patient Participated in Evaluation: Yes Respiratory Function Stable: Yes Airway Patent: Yes Cardiovascular Function Stable: Yes Hydration Status Stable: Yes Pain Control Satisfactory: Yes Nausea and Vomiting Control Satisfactory: Yes Mental Status Recovered: Yes - COMMENTS/OBSERVATIONS Free Text/Narrative:: Patient denied any headaches, residual numbness/ tingling to LE, or back pain.
[2017-02-04] MEDS ORDERED: Ondansetron 4 MG/2 ML SDV IVPUSH SCH (21:00)
--- NOTE | 2017-02-06 23:26 | OR ---
DATE OF OPERATION: 02/03/2017 SURGEON: Zac Russ MD OPERATION PERFORMED: Left total hip arthroplasty. PREOPERATIVE DIAGNOSIS: Left hip osteoarthrosis. POSTOPERATIVE DIAGNOSIS: Left hip osteoarthrosis. ANESTHESIA: Local MAC with spinal. PRIMARY SURGEON: Zac Russ MD. ANESTHESIA PROVIDER: Lindsey Bernardo. ASSISTANTS: Maribel Torres PA-C and Chelsea Cabrera LPN. ESTIMATED BLOOD LOSS: 400 mL. COMPLICATIONS: None. CONDITION: Stable. IMPLANTS: 1. Lang size 56 mm Tritanium solid acetabular cup. 2. LANG size 6 Accolade II stem. 3. Lang size 36 mm +0 Biolox ceramic head. DESCRIPTION OF PROCEDURE: The patient was identified in the preoperative holding area and kevin site was marked and identified by the surgeon. The patient was taken back to the operating theater, where after adequate anesthesia, the patient was placed in a right lateral decubitus position. Axillary wedge was placed. All bony prominences were well padded. Pegs were then placed and well padded. The patient's gluteal fold was parallel to the floor. At this time, the left hip was then sterilely prepped and draped in the usual sterile fashion. OR time-out was performed. The patient received 2 g IV Ancef. At this time, an incision for the posterior approach to the hip was utilized over the center of the greater trochanter. This was taken down to the IT band and gluteal fascia, which was incised along the incisional length. Charnley retractor was then placed. Short external rotators were identified. Piriformis was identified and taken down with short external rotators as well as capsulotomy was performed all the way from the piriformis down to the level of lesser trochanter. Hip was then dislocated. Neck cut guide was then placed. Neck cut was then completed. Attention was turned to the acetabulum. Anterior and posterior acetabular retractors were placed, and at this time, the pulvinar along with the posterior and anterior labrum were resected. Starting with a 46 reamer, I was able to ream up to a 56. A 56 mm trial was found to be in adequate position, roughly 45 degrees of abduction and 10 to 15 degrees of anteversion. At this time, a 56 mm solid Tritanium acetabular cup was impacted into place and was found to have adequate fixation. The 36 mm 10 degree elevated liner was then impacted in place. Attention was turned to the femur. Femoral elevator was placed. Box chisel was used out laterally and starter awl was placed down the canal. Starting with a size 0 broach, I was able to broach up to a size 6 which was found to be rotationally and vertically stable. A 127-degree neck angle was then placed and a 36 mm +0 was then trialed. It was found to have adequate sabianism of leg lengths along with good stability without range of motion. Bone hook was used for dislocation of the hip. A size 6 Accolade II stem was then impacted into place. A 36 mm +0 head was then impacted into place. Hip was then relocated and was found to be stable. A 1 L dilute Betadine solution along with 3 L pulse lavage irrigation with Ancef then were irrigated through the left hip. A #5 Ethibond suture was used for closure of the short external rotators and capsule. A #2 barbed suture was used for closure of the IT band and gluteal fascia after topical vancomycin powder was placed as well as topical tranexamic acid. 2-0 Vicryl was used subcutaneously and Prineo was used for the skin. The patient was sent to PACU in stable condition and tolerated the procedure well. ELIZABET /[id number]
--- NOTE | 2017-02-07 08:18 | PCM.SURGPN ---
- General Info Date of Service: 02/04/17 POD#: 1 Functional Status: Reports: Pain Controlled, Tolerating Diet, Ambulating, Urinating, Incentive Spirometry, Other (The pt has met therapy goals and feels prepared for discharge to home.) - Patient Data Vitals - Most Recent: Last Vital Signs Temp 98.1 F 02/04/17 12:01 Pulse 67 02/04/17 12:02 Resp 18 02/04/17 12:02 BP 106/46 L 02/04/17 13:29 Pulse Ox 99 02/04/17 12:02 Weight - Most Recent: 217 lb 14.4 oz Med Orders - Current: Current Medications Discontinued Medications Bisacodyl (Dulcolax) 5 mg PO DAILY PRN PRN Reason: Constipation Bupivacaine HCl (Marcaine 0.25%) Confirm Administered Dose 30 ml .ROUTE .STK- MED ONE Stop: 02/03/17 11:25 Last Admin: 02/03/17 13:28 Dose: 30 ml Cefazolin Sodium (Ancef) Confirm Administered Dose 1 gm .ROUTE .STK-MED ONE Stop: 02/03/17 11:37 Cefazolin Sodium (Ancef) Confirm Administered Dose 1 gm .ROUTE .STK-MED ONE Stop: 02/03/17 11:37 Cefazolin Sodium (Ancef) Confirm Administered Dose 2 gm .ROUTE .STK-MED ONE Stop: 02/03/17 11:24 Last Admin: 02/03/17 13:23 Dose: 2 gm Cholecalciferol (Vitamin D3) 1,000 units PO DAILY [facility] Last Admin: 02/04/17 09:04 Dose: 1,000 units Morphine Sulfate 8 mg/Epinephrine HCl 0.3 mg/Cefuroxime Sodium 750 mg/Ketorolac Tromethamine 30 mg/Sodium Chloride 27.9 ml 0 mg .XX ONETIME ONE Stop: 02/03/17 11:31 Last Admin: 02/03/17 13:27 Dose: 788.3 mg Cyclobenzaprine HCl (Flexeril) 10 mg PO TID PRN PRN Reason: Spasms Dexamethasone (Dexamethasone) Confirm Administered Dose 20 mg .ROUTE .STK-MED ONE Stop: 02/03/17 13:50 Diphenhydramine HCl (Benadryl) 25 mg IVPUSH Q4H PRN PRN Reason: Nausea Last Admin: 02/03/17 19:08 Dose: 25 mg Diphenhydramine HCl (Benadryl) 25 mg IVPUSH Q6H PRN PRN Reason: Pruritis Stop: 02/03/17 23:00 Diphtheria/Tetanus/Acell Pertussis (Adacel) 0.5 ml IM .ONCE ONE Stop: 02/03/17 13:35 Docusate Sodium (Colace) 100 mg PO BID [facility] Last Admin: 02/04/17 09:05 Dose: 100 mg Ephedrine Sulfate (Ephedrine Sulfate) Confirm Administered Dose 50 mg .ROUTE .STK-MED ONE Stop: 02/03/17 13:02 Ephedrine Sulfate (Ephedrine Sulfate) 5 mg IVPUSH ASDIRECTED PRN PRN Reason: Hypotension Stop: 02/03/17 23:00 Famotidine (Pepcid) 20 mg PO BID [facility] Last Admin: 02/04/17 09:05 Dose: 20 mg Fentanyl (Sublimaze) Confirm Administered Dose 100 mcg .ROUTE .STK-MED ONE Stop: 02/03/17 11:36 Fentanyl (Sublimaze) 50 mcg IVPUSH Q5M PRN PRN Reason: Pain Stop: 02/03/17 18:00 Haloperidol Lactate (Haldol) 1 mg IVPUSH ONETIME ONE Stop: 02/03/17 14:41 Lactated Ringer's (Ringers, Lactated) 1,000 mls @ 125 mls/hr IV ASDIRECTED [facility] Stop: 02/03/17 23:00 Last Admin: 02/03/17 15:04 Dose: 125 mls/hr Cefazolin Sodium/Dextrose 2 gm (/ Premix) 50 mls @ 100 mls/hr IV Q8H [facility] Stop: 02/04/17 11:59 Last Admin: 02/04/17 10:52 Dose: 100 mls/hr Lactated Ringer's (Ringers, Lactated) Confirm Administered Dose 1,000 mls @ as directed .ROUTE .STK-MED ONE Stop: 02/03/17 12:31 Influenza Virus Vaccine (Pharmacy To Dose - Influenza Vaccine) 1 each IM ONETIME ONE Stop: 02/03/17 13:35 Influenza Virus Vaccine (Flulaval Quad [id number]) 60 mcg IM .ONCE ONE Stop: 02/03/17 13:46 Iodine (Iodine 2% Mild Tincture) Confirm Administered Dose 30 ml .ROUTE .STK- MED ONE Stop: 02/03/17 11:24 Last Admin: 02/03/17 13:20 Dose: 18 ml Ketamine HCl (Ketalar) Confirm Administered Dose 500 mg .ROUTE .STK-MED ONE Stop: 02/03/17 11:37 Ketorolac Tromethamine (Toradol) Confirm Administered Dose 30 mg .ROUTE .STK- MED ONE Stop: 02/03/17 14:33 Lidocaine/Sodium Bicarbonate (Buffered Lidocaine 1% In Ns 8.4%) 0.25 ml .XX ONETIME PRN PRN Reason: Prior to IV Start Stop: 02/03/17 18:00 Loratadine (Claritin) 10 mg PO DAILY PRN PRN Reason: Allergies Magnesium Hydroxide (Milk Of Magnesia) 30 ml PO BID PRN PRN Reason: Constipation Meclizine HCl (Antivert) 25 mg PO ONETIME ONE Stop: 02/03/17 15:38 Last Admin: 02/03/17 15:53 Dose: 25 mg Metoclopramide HCl (Reglan) 5 mg IVPUSH Q6H [facility] Last Admin: 02/03/17 17:08 Dose: 5 mg Midazolam HCl (Versed 1 Mg/Ml) Confirm Administered Dose 2 mg .ROUTE .STK-MED ONE Stop: 02/03/17 11:35 Morphine Sulfate (Morphine) 2 mg IVPUSH Q2H PRN PRN Reason: Breakthrough Pain Morphine Sulfate (Duramorph Pf) Confirm Administered Dose 10 mg .ROUTE .STK-MED ONE Stop: 02/03/17 11:35 Naloxone HCl (Narcan) 0.1 mg IVPUSH Q5M PRN PRN Reason: Oversedation Non-Formulary Medication (Balsalazide Disodium [Balsalazide Disodium]) 3 cap PO TID [facility] Ondansetron HCl (Zofran) 4 mg IVPUSH Q6H PRN PRN Reason: Nausea/Vomiting Ondansetron HCl (Zofran) 4 mg IVPUSH ONETIME PRN PRN Reason: Nausea/Vomiting Stop: 02/03/17 23:00 Last Admin: 02/03/17 14:55 Dose: 4 mg Ondansetron HCl (Zofran) Confirm Administered Dose 4 mg .ROUTE .STK-MED ONE Stop: 02/03/17 13:50 Ondansetron HCl (Zofran) 4 mg IVPUSH Q6HR [facility] Oxycodone/Acetaminophen (Percocet 325-5 Mg) 1 - 2 tab PO Q4H PRN PRN Reason: Pain Last Admin: 02/04/17 16:04 Dose: 2 tab Pneumococcal Polyvalent Vaccine (Pneumovax 23) 0.5 ml IM .ONCE ONE Stop: 02/03/17 13:35 Prochlorperazine Edisylate (Compazine) 5 mg IVPUSH Q6H PRN PRN Reason: Nausea/Vomiting Last Admin: 02/03/17 19:52 Dose: 5 mg Propofol (Diprivan 20 Ml) Confirm Administered Dose 200 mg .ROUTE .STK-MED ONE Stop: 02/03/17 11:36 Propofol (Diprivan 20 Ml) Confirm Administered Dose 200 mg .ROUTE .STK-MED ONE Stop: 02/03/17 11:36 Propofol (Diprivan 20 Ml) Confirm Administered Dose 200 mg .ROUTE .STK-MED ONE Stop: 02/03/17 11:37 Rivaroxaban (Xarelto) 10 mg PO DAILY [facility] Last Admin: 02/04/17 09:15 Dose: 10 mg Scopolamine (Transderm-Scop) 1.5 mg TRDERM ONETIME ONE Stop: 02/03/17 11:12 Last Admin: 02/03/17 11:20 Dose: 1.5 mg Senna (Senna) 8.6 mg PO BID PRN PRN Reason: Constipation Sodium Chloride (Saline Flush) 10 ml FLUSH ASDIRECTED PRN PRN Reason: Keep Vein Open Stop: 02/03/17 18:00 Tranexamic Acid (Cyklokapron) Confirm Administered Dose 1,000 mg .ROUTE .STK- MED ONE Stop: 02/03/17 11:24 Last Admin: 02/03/17 13:33 Dose: 1,000 mg Vancomycin HCl (Vancomycin) Confirm Administered Dose 1 gm .ROUTE .STK-MED ONE Stop: 02/03/17 11:24 Last Admin: 02/03/17 13:34 Dose: 1 gm Zolpidem Tartrate (Ambien) 5 - 10 mg PO BEDTIME PRN PRN Reason: Insomnia - Exam Wound/Incisions: Dressing Dry and Intact General: Alert, Cooperative, No Acute Distress Lungs: Normal Respiratory Effort Extremities: Other (NVS intact for BLE. Galo's negative. Left thigh soft.) - Problem List Review Problem List Initiated/Reviewed/Updated: Yes - Assessment Assessment (Free Text/Narrative):: POD#1 - left EDI - Plan Plan (Free Text/Narrative):: 1. Xarelto, TEDs, frequent mobility for VTE prophylaxis. 2. Discharge to home today. 3. EDI precautions. 4. Hgb 13.[address] Russ evaluated the pt today.
--- NOTE | 2017-02-07 08:21 | PCM.DCSUM1 ---
Discharge Summary - Hospital Course Brief History: Odell is a 66 yo female who underwent left EDI with Dr. Russ on 02-03-2017. The pt tolerated the procedure well and was admitted to the Medical -Surgical Unit. Medical management was provided by the Hospitalist service. The pt's Hospital course was uneventful. The pt's Hgb on POD#1 was 13.0 On POD #1, Xarelto 10mg PO daily was initiated for VTE prophylaxis. SCDs and TEDs were also ordered. A Mepilex dressing was placed at the incision site at the time of surgery and remained clean and dry. The pt participated in P.T. and O.T. and progressed well. She followed the EDI precautions. The pt was allowed to WBAT and used a FWW for mobility. On POD#1, the pt was deemed appropriate to discharge to home with her family. - Discharge Data Discharge Date: 02/04/17 Discharge Disposition: Home, Self-Care 01 Condition: Good - Patient Summary/Data Operative Procedure(s) Performed: left total hip arthroplasty Consults: Consultations 02/03/17 06:47 Consult to Physician [CONS] Routine 02/04/17 07:46 PT Evaluation and Treatment [CONS] Routine 02/04/17 07:47 OT Evaluation and Treatment [CONS] Routine - Patient Instructions Diet: Usual Diet as Tolerated Activity: Apply Ice, As Tolerated, Elevate Extremity, Full Weight Bearing Activity, Other: Total hip precautions. Driving: Do Not Drive Showering/Bathing: May Shower Wound/Incision Care: Keep Operative Site/Wound Site Clean and Dry, Do NOT Change Dressing Notify Provider of: Fever, Increased Pain, Swelling and Redness, Drainage, Nausea and/or Vomiting Other/Special Instructions: Please get up and moving around every hour while awake. This helps to prevent blood clots. Please use your walker and have help as needed. Take the Xarelto blood thinner medication daily. This also helps to prevent blood clots. Do the exercises you were taught in the Hospital. Follow the total hip arthroplasty precautions. Schedule for P.T. Use the pain medication as needed. The medication may cause drowsiness and constipation. Contact your primary care provider for instructions if you are constipated. You may use a stool softener like docusate sodium or Colace 100mg twice daily and/or a laxative like Miralax daily for constipation. Use the ice machine often. Elevate the limb to decrease swelling. Keep the Mepilex dressing in place until follow-up at the Clinic. Notify the Clinic if the dressing is saturated. Wear the ANISA hose during the day and you may remove these at night. Eat a diet high in protein as this well help with healing. Schedule an appointment with your primary care provider for 'routine post-op care'. Call the Clinic with questions or concerns - [phone]. - Discharge Plan Home Medications: Home Meds Acetaminophen [Tylenol Extra Strength] 1,000 mg PO Q6H PRN 01/31/17 [History] Balsalazide Disodium 3 cap PO TID 01/31/17 [History] Cholecalciferol (Vitamin D3) [Vitamin D3] 1,000 unit PO DAILY 01/31/17 [History] Loratadine [Alavert] 10 mg PO DAILY PRN 01/31/17 [History] Zolpidem [Ambien] 5 - 10 mg PO BEDTIME PRN 01/31/17 [History] Acetaminophen/oxyCODONE [Percocet 325-5 MG] 1 - 2 tab PO Q6H PRN #60 tablet [Rx] Cyclobenzaprine [Flexeril] 10 mg PO TID PRN #40 tablet 02/04/17 [Rx] Rivaroxaban [Xarelto] 10 mg PO DAILY 34 Days #34 tablet 02/04/17 [Rx] Patient Handouts: Rivaroxaban oral tablets, Total Hip Replacement, [id number] , Hip Rehabilitation After Surgery, Total Hip Replacement, Care After, Easy-to- Read Referrals: Emelina Mireles MD [Primary Care Provider] - Maribel Torres PA-C [Physician Gluing Pressman] - (Please see Maribel Torres on Saturday February 11, 2017 at 9:45 AM and on Saturday February 18, 2017 at 9:54 AM.) - Patient Data Vitals - Most Recent: Last Vital Signs Temp 98.1 F 02/04/17 12:01 Pulse 67 02/04/17 12:02 Resp 18 02/04/17 12:02 BP 106/46 L 02/04/17 13:29 Pulse Ox 99 02/04/17 12:02 Weight - Most Recent: 217 lb 14.4 oz Med Orders - Current: Current Medications Discontinued Medications Bisacodyl (Dulcolax) 5 mg PO DAILY PRN PRN Reason: Constipation Bupivacaine HCl (Marcaine 0.25%) Confirm Administered Dose 30 ml .ROUTE .STK- MED ONE Stop: 02/03/17 11:25 Last Admin: 02/03/17 13:28 Dose: 30 ml Cefazolin Sodium (Ancef) Confirm Administered Dose 1 gm .ROUTE .STK-MED ONE Stop: 02/03/17 11:37 Cefazolin Sodium (Ancef) Confirm Administered Dose 1 gm .ROUTE .STK-MED ONE Stop: 02/03/17 11:37 Cefazolin Sodium (Ancef) Confirm Administered Dose 2 gm .ROUTE .STK-MED ONE Stop: 02/03/17 11:24 Last Admin: 02/03/17 13:23 Dose: 2 gm Cholecalciferol (Vitamin D3) 1,000 units PO DAILY MARISELA Last Admin: 02/04/17 09:04 Dose: 1,000 units Morphine Sulfate 8 mg/Epinephrine HCl 0.3 mg/Cefuroxime Sodium 750 mg/Ketorolac Tromethamine 30 mg/Sodium Chloride 27.9 ml 0 mg .XX ONETIME ONE Stop: 02/03/17 11:31 Last Admin: 02/03/17 13:27 Dose: 788.3 mg Cyclobenzaprine HCl (Flexeril) 10 mg PO TID PRN PRN Reason: Spasms Dexamethasone (Dexamethasone) Confirm Administered Dose 20 mg .ROUTE .STK-MED ONE Stop: 02/03/17 13:50 Diphenhydramine HCl (Benadryl) 25 mg IVPUSH Q4H PRN PRN Reason: Nausea Last Admin: 02/03/17 19:08 Dose: 25 mg Diphenhydramine HCl (Benadryl) 25 mg IVPUSH Q6H PRN PRN Reason: Pruritis Stop: 02/03/17 23:00 Diphtheria/Tetanus/Acell Pertussis (Adacel) 0.5 ml IM .ONCE ONE Stop: 02/03/17 13:35 Docusate Sodium (Colace) 100 mg PO BID MARISELA Last Admin: 02/04/17 09:05 Dose: 100 mg Ephedrine Sulfate (Ephedrine Sulfate) Confirm Administered Dose 50 mg .ROUTE .STK-MED ONE Stop: 02/03/17 13:02 Ephedrine Sulfate (Ephedrine Sulfate) 5 mg IVPUSH ASDIRECTED PRN PRN Reason: Hypotension Stop: 02/03/17 23:00 Famotidine (Pepcid) 20 mg PO BID [facility] Last Admin: 02/04/17 09:05 Dose: 20 mg Fentanyl (Sublimaze) Confirm Administered Dose 100 mcg .ROUTE .STK-MED ONE Stop: 02/03/17 11:36 Fentanyl (Sublimaze) 50 mcg IVPUSH Q5M PRN PRN Reason: Pain Stop: 02/03/17 18:00 Haloperidol Lactate (Haldol) 1 mg IVPUSH ONETIME ONE Stop: 02/03/17 14:41 Lactated Ringer's (Ringers, Lactated) 1,000 mls @ 125 mls/hr IV ASDIRECTED [facility] Stop: 02/03/17 23:00 Last Admin: 02/03/17 15:04 Dose: 125 mls/hr Cefazolin Sodium/Dextrose 2 gm (/ Premix) 50 mls @ 100 mls/hr IV Q8H [facility] Stop: 02/04/17 11:59 Last Admin: 02/04/17 10:52 Dose: 100 mls/hr Lactated Ringer's (Ringers, Lactated) Confirm Administered Dose 1,000 mls @ as directed .ROUTE .STK-MED ONE Stop: 02/03/17 12:31 Influenza Virus Vaccine (Pharmacy To Dose - Influenza Vaccine) 1 each IM ONETIME ONE Stop: 02/03/17 13:35 Influenza Virus Vaccine (Flulaval Quad [id number]) 60 mcg IM .ONCE ONE Stop: 02/03/17 13:46 Iodine (Iodine 2% Mild Tincture) Confirm Administered Dose 30 ml .ROUTE .STK- MED ONE Stop: 02/03/17 11:24 Last Admin: 02/03/17 13:20 Dose: 18 ml Ketamine HCl (Ketalar) Confirm Administered Dose 500 mg .ROUTE .STK-MED ONE Stop: 02/03/17 11:37 Ketorolac Tromethamine (Toradol) Confirm Administered Dose 30 mg .ROUTE .STK- MED ONE Stop: 02/03/17 14:33 Lidocaine/Sodium Bicarbonate (Buffered Lidocaine 1% In Ns 8.4%) 0.25 ml .XX ONETIME PRN PRN Reason: Prior to IV Start Stop: 02/03/17 18:00 Loratadine (Claritin) 10 mg PO DAILY PRN PRN Reason: Allergies Magnesium Hydroxide (Milk Of Magnesia) 30 ml PO BID PRN PRN Reason: Constipation Meclizine HCl (Antivert) 25 mg PO ONETIME ONE Stop: 02/03/17 15:38 Last Admin: 02/03/17 15:53 Dose: 25 mg Metoclopramide HCl (Reglan) 5 mg IVPUSH Q6H MARISELA Last Admin: 02/03/17 17:08 Dose: 5 mg Midazolam HCl (Versed 1 Mg/Ml) Confirm Administered Dose 2 mg .ROUTE .STK-MED ONE Stop: 02/03/17 11:35 Morphine Sulfate (Morphine) 2 mg IVPUSH Q2H PRN PRN Reason: Breakthrough Pain Morphine Sulfate (Duramorph Pf) Confirm Administered Dose 10 mg .ROUTE .STK-MED ONE Stop: 02/03/17 11:35 Naloxone HCl (Narcan) 0.1 mg IVPUSH Q5M PRN PRN Reason: Oversedation Non-Formulary Medication (Balsalazide Disodium [Balsalazide Disodium]) 3 cap PO TID MARSIELA Ondansetron HCl (Zofran) 4 mg IVPUSH Q6H PRN PRN Reason: Nausea/Vomiting Ondansetron HCl (Zofran) 4 mg IVPUSH ONETIME PRN PRN Reason: Nausea/Vomiting Stop: 02/03/17 23:00 Last Admin: 02/03/17 14:55 Dose: 4 mg Ondansetron HCl (Zofran) Confirm Administered Dose 4 mg .ROUTE .STK-MED ONE Stop: 02/03/17 13:50 Ondansetron HCl (Zofran) 4 mg IVPUSH Q6HR [facility] Oxycodone/Acetaminophen (Percocet 325-5 Mg) 1 - 2 tab PO Q4H PRN PRN Reason: Pain Last Admin: 02/04/17 16:04 Dose: 2 tab Pneumococcal Polyvalent Vaccine (Pneumovax 23) 0.5 ml IM .ONCE ONE Stop: 02/03/17 13:35 Prochlorperazine Edisylate (Compazine) 5 mg IVPUSH Q6H PRN PRN Reason: Nausea/Vomiting Last Admin: 02/03/17 19:52 Dose: 5 mg Propofol (Diprivan 20 Ml) Confirm Administered Dose 200 mg .ROUTE .STK-MED ONE Stop: 02/03/17 11:36 Propofol (Diprivan 20 Ml) Confirm Administered Dose 200 mg .ROUTE .STK-MED ONE Stop: 02/03/17 11:36 Propofol (Diprivan 20 Ml) Confirm Administered Dose 200 mg .ROUTE .STK-MED ONE Stop: 02/03/17 11:37 Rivaroxaban (Xarelto) 10 mg PO DAILY MARISELA Last Admin: 02/04/17 09:15 Dose: 10 mg Scopolamine (Transderm-Scop) 1.5 mg TRDERM ONETIME ONE Stop: 02/03/17 11:12 Last Admin: 02/03/17 11:20 Dose: 1.5 mg Senna (Senna) 8.6 mg PO BID PRN PRN Reason: Constipation Sodium Chloride (Saline Flush) 10 ml FLUSH ASDIRECTED PRN PRN Reason: Keep Vein Open Stop: 02/03/17 18:00 Tranexamic Acid (Cyklokapron) Confirm Administered Dose 1,000 mg .ROUTE .STK- MED ONE Stop: 02/03/17 11:24 Last Admin: 02/03/17 13:33 Dose: 1,000 mg Vancomycin HCl (Vancomycin) Confirm Administered Dose 1 gm .ROUTE .STK-MED ONE Stop: 02/03/17 11:24 Last Admin: 02/03/17 13:34 Dose: 1 gm Zolpidem Tartrate (Ambien) 5 - 10 mg PO BEDTIME PRN PRN Reason: Insomnia *Q Meaningful Use (DIS) - VTE *Q VTE Criteria *Q: - Stroke *Q Stroke Criteria *Q: - AMI *Q AMI Criteria *Q:
== END 2017-02-04 16:39 | disposition home or self-care (01) | DRG 470 ==
LOC: JD.OB 10:30 → JD.MS 14:23
PROVIDERS: ADMIT Orthopaedic Surgery; ATTEND Orthopaedic Surgery
PROC: 0SRB029 Replacement of Left Hip Joint with Metal on Polyethylene Synthetic Substitute, Cemented, Open Approach (ICD-10-PCS; principal; 2017-02-03)
DX: M16.12 Unilateral primary osteoarthritis, left hip (principal); R32 Unspecified urinary incontinence; E78.5 Hyperlipidemia, unspecified; Z96.651 Presence of right artificial knee joint; Z79.899 Other long term (current) drug therapy; Z88.8 Allergy status to other drugs, medicaments and biological substances; H54.7 Unspecified visual loss
CPT/HCPCS: 01214; 36415; 73501-26-LT; 73501-LT; 80053; 85027; 86850; 86900; 86901; 94762; 97110-GP; 97116-GP; 97162-GP; 97165-GO; 97530-GO; 97535-GO; A9270-GY; C1776; J0171; J0690; J0697; J0780; J1100; J1200; J1885; J2250; J2270; J2405; J2704; J2765; J3010; J3370; J3490; J7120

== ENCOUNTER 2023-08-18 08:01 | Day surgery (SDC) | payer OTHER, MEDICARE ==
[2023-08-18] MEDS ORDERED: Propofol 200 MG/20 ML SDV ONE ×3 (08:28→11:44)
[2023-08-18] MEDS ORDERED: Lactated Ringers 1,000 ML ONE (08:28)
[2023-08-18] MEDS ORDERED: ceFAZolin 2 GM Vial ONE (08:28)
[2023-08-18] MEDS ORDERED: Midazolam 1 MG/ML 2 ML SDV ONE (08:28)
[2023-08-18] MEDS: Scopalamine 1mg/3day Transdermal Patch TRDERM ONE (09:37)
[2023-08-18] MEDS ORDERED: Ondansetron 4 MG/2 ML SDV ONE (11:07)
[2023-08-18] MEDS ORDERED: Dexamethasone 4 MG/ML 5 ML MDV ONE (11:07)
[2023-08-18] MEDS ORDERED: fentaNYL 100 MCG/2 ML SDV ONE (11:16)
[2023-08-18] MEDS ORDERED: diphenhydrAMINE 50 MG/ML SDV ONE (11:17)
[2023-08-18] MEDS ORDERED: fentaNYL 100 MCG/2 ML SDV IVPUSH PRN (11:37)
[2023-08-18] MEDS ORDERED: HYDROmorphone 0.5 MG/0.5 ML Syringe IVPUSH PRN (11:37)
[2023-08-18] MEDS ORDERED: Ondansetron 4 MG/2 ML SDV IVPUSH PRN (11:37)
[2023-08-18] MEDS ORDERED: ePHEDrine 50 MG/ML SDV ONE (11:39)
[2023-08-18] MEDS ORDERED: Lactated Ringers 1,000 ML IV ONE (12:00)
[2023-08-18] MEDS ORDERED: Ketorolac 30 MG/ML SDV ONE (12:04)
[2023-08-18] MEDS: Morphine 8 MG, EPINEPHrine 0.3 MG, Cefuroxime 750 MG, Ketorolac 30 MG, Sodium Chloride ... PRN (12:10)
[2023-08-18] MEDS: Tranexamic Acid 1,000 MG/10 ML Vial ONE (12:10)
[2023-08-18] MEDS: Vancomycin 1 GM SDV ONE (12:10)
== END 2023-08-18 16:30 | disposition home or self-care (01) ==
LOC: JD.SDS 08:01
PROVIDERS: ATTEND Orthopaedic Surgery
DX: M16.11 Unilateral primary osteoarthritis, right hip (principal); E78.5 Hyperlipidemia, unspecified; F41.9 Anxiety disorder, unspecified; J45.909 Unspecified asthma, uncomplicated; Z79.899 Other long term (current) drug therapy; Z88.2 Allergy status to sulfonamides
CPT/HCPCS: 0055T; 27130; 73501; 97110; 97161; A9270; C1713; C1776; J0171; J0690; J0697; J1100; J1200; J1885; J2250; J2270; J2405; J2704; J3010; J3370; J7120; 01214; 99100; J3490